=== PATIENT | female | born 1960 | race Caucasian/White ===

== ENCOUNTER 2016-11-18 14:44 | Emergency (ER) | payer OTHER ==
[2016-11-18 15:02] VITALS: O2SAT 100
--- NOTE | 2016-11-18 15:21 | ERPHSYRPT ---
- History of Present Illness Time Seen by Provider: 11/18/16 15:15 Source: patient Exam Limitations: no limitations Physician History: This is a 56-year-old white female previously healthy arrives with complaint of a nonspecific rash which is somewhat pruritic cyst which is occurring on her back on her chest and abdomen symptoms going on since Monday 3 days ago. Patient has not had any fevers no nausea no vomiting no sore throat she has not been otherwise ill. Past medical history patient denies past surgical history includes . Timing/Duration: day(s) (3 days) Quality: itchy Severity: mild Location: torso Possible Causes: no cause identified Associated Symptoms: rash, No blisters, No change in skin texture, No edema, No fever, No flushing, No headache, No hives, No jaundice, No malaise, No nasal congestion, No numbness, No pallor, No paresthesia, No petechiae, No sore throat , No swelling/mass/lumps, No tingling - Review of Systems Constitutional: No Fever, No Chills Eyes: No Symptoms Ears, Nose, & Throat: No Symptoms Respiratory: No Cough, No Dyspnea Cardiac: No Chest Pain, No Edema, No Syncope Abdominal/Gastrointestinal: No Abdominal Pain, No Nausea, No Vomiting, No Diarrhea Genitourinary Symptoms: No Dysuria Musculoskeletal: No Back Pain, No Neck Pain Skin: Rash (patient with a sparse rash on her substernal area anterior abdomen and on her back symptoms for 3 days) Neurological: No Dizziness, No Focal Weakness, No Sensory Changes Psychological: No Symptoms Endocrine: No Symptoms - Past Medical History Pertinent Past Medical History: No - Past Surgical History Female Surgical History: Section - Nursing Vital Signs Nursing Vital Signs: Initial Vital Signs Temperature 98.4 F Temperature Source Oral Pulse Rate 76 Respiratory Rate 18 Blood Pressure [Right Arm] 168/89 Pain Intensity 1 - Physical Exam General Appearance: no apparent distress, alert Eye Exam: PERRL/EOMI, eyes nml inspection Ears, Nose, Throat Exam: normal ENT inspection, pharynx normal, moist mucous membranes Neck Exam: normal inspection, non-tender, supple, full range of motion Respiratory Exam: normal breath sounds, lungs clear, No respiratory distress Cardiovascular Exam: regular rate/rhythm, normal heart sounds Gastrointestinal/Abdomen Exam: soft, mass, No tenderness Back Exam: normal inspection, normal range of motion, No CVA tenderness, No vertebral tenderness Extremity Exam: normal inspection, normal range of motion Neurologic Exam: alert, oriented x 3, cooperative, normal mood/affect, sensation nml, No motor deficits Skin Exam: other (patient with a sparse macular rash on her anterior sternal region with the couple of lesions on her anterior abdomen and a few lesions on her back there are no vesicles there is no excoriation) SpO2: 100 Oxygen Delivery: Room Air - Course Nursing assessment & vital signs reviewed: Yes - Progress Progress: improved Progress Note: 11/18/16 15:19 This is a 56-year-old white female arrives with complaint of a sparse macular rash on her anterior sternal region upper abdomen, and on her back symptoms for 3 days. She has not had any vesicles or excoriations. She does state that when she sweats the areas become puritic. She has had no fever has not been otherwise ill she is concerned she might have chickenpox. Clinically patient does not have chickenpox. I have told her however that with concern that she has a daughter who is she should probably stay away from the daughter until lesions resolve. - Departure Time of Disposition: 15:20 Departure Disposition: Home Clinical Impression: Viral exanthem Condition: Fair Critical Care Time: No Additional Instructions: Return home. Plenty of fluids. Benadryl 25-50 mg orally every 6 hours as needed for itching. Follow-up with your family doctor. Avoid women or people who are undergoing chemotherapy or immunocompromised until lesions resolve. Follow-up with your family Dr. symptoms no better in 48 hours worse or persist longer than one week. return for acute distress or for severe symptoms.
[2016-11-18 15:44] VITALS: BP 158/86; PULSE 71
== END 2016-11-18 15:44 | disposition home or self-care (01) ==
LOC: ED 14:44
DX: B08.8 Other specified viral infections characterized by skin and mucous membrane lesions (principal)
CPT/HCPCS: 99281